=== PATIENT | female | born 1945 | race Caucasian/White ===

== ENCOUNTER 2020-03-14 13:13 | Inpatient (IN) | payer MEDICAID ==
[~2020-03-14] VITALS: Ht 152.4 cm; Wt 56.7 kg
[~2020-03-14 13:13] MED LIST: ASPI-1158 PO; BENA20TA10 PO; GABA-531 PO; SIMV-43 PO; [UNRECOGNIZED DRUG - CODE] SUBCUT
[2020-03-14] MEDS ORDERED: INSU100I32 SQ (13:34)
[2020-03-14] MEDS ORDERED: AMLO10TA80 PO (13:34)
[2020-03-14] MEDS ORDERED: INSU100I24 SQ (13:34)
[2020-03-14] MEDS ORDERED: CLOP75TA33 PO (13:34)
[2020-03-14] MEDS ORDERED: SODIUM CHLORIDE 0.9% 1,000 ML IV ONE (13:56)
[2020-03-14] MEDS ORDERED: LORAZEPAM 2MG/ML CPJ IV ONE (14:00)
[2020-03-14 14:21] LABS: BASOPHILS % 0.7 % (0.0-2.0); EOSINOPHILS % 3.9 % (0.0-5.0); HEMATOCRIT. 42.8 % (36.0-48.0); HEMOGLOBIN. 15.1 g/dL (12.0-16.0); LYMPHOCYTES % 25.6 % (20.0-50.0); MEAN CORPUSCULAR VOLUME 87.9 fL (81.0-99.0); MEAN PLATELET VOLUME 9.1 fl (7.4-10.4); MONOCYTES % 7.7 % (2.0-8.0); NEUTROPHILS % 62.1 % (40.0-76.0); PLATELET 258 x1000/uL (130-400); RED BLOOD CELL COUNT 4.86 mill/uL (4.2-5.4); RED CELL DISTRIBUTION WIDTH 13.3 % (11.6-14.6)
[2020-03-14 14:29] LABS: CHLORIDE 106 mEq/L (98-107)
[2020-03-14 14:31] LABS: PARTIAL THROMBOPLASTIN TIME 26.6 sec (23.4-31.0); PROTHROMBIN TIME 10.7 sec (9.6-11.0)
[2020-03-14 14:35] LABS: ETHANOL BLOOD < 10 mg/dL
[2020-03-14 15:29] LABS: CLARITY URINE CLEAR (CLEAR); COLOR URINE YELLOW (YELLOW); KETONES URINE NEGATIVE (NEGATIVE); LEUKOCYTE ESTERASE URINE NEGATIVE (NEGATIVE); NITRITE URINE NEGATIVE (NEGATIVE); OCCULT BLOOD URINE NEGATIVE (NEGATIVE); PH URINE 6.5 (4.5-8.0); PROTEIN URINE NEGATIVE (NEGATIVE); SPECIFIC GRAVITY URINE 1.013 (1.005-1.030); UROBILINOGEN URINE 0.2 E.U./dL (0.2-1.0)
[2020-03-14 15:47] LABS: *AMPHETAMINES SCREEN URINE NEGATIVE (NEGATIVE); *BARBITURATES SCREEN URINE NEGATIVE (NEGATIVE); *BENZODIAZEPINES SCREEN URINE NEGATIVE (NEGATIVE); *COCAINE SCREEN URINE NEGATIVE (NEGATIVE); METHADONE URINE SCREEN NEGATIVE (NEGATIVE); OPIATES URINE SCREEN NEGATIVE (NEGATIVE); PHENCYCLIDINE URINE SCREEN NEGATIVE (NEGATIVE)
[2020-03-14 15:48] LABS: CANNABINOID URINE SCREEN NEGATIVE (NEGATIVE)
[2020-03-14] MEDS ORDERED: ENOXAPARIN 40MG/0.4ML SYR SUBCUT SCH (18:00)
[2020-03-14] MEDS ORDERED: DEXTROSE 50% WATER 50ML SYRINGE IV PRN (18:00)
[2020-03-14] MEDS: LORAZEPAM 2MG/ML CPJ IV PRN (18:28)
[2020-03-14] MEDS: INSULIN LISPRO 100 UNITS/ML SUBCUT SCH ×2 (18:47→21:26)
[2020-03-14 20:02] LABS: T4 FREE 1.46 ng/dL (0.76-1.46)
[2020-03-14 21:00] VITALS: BP_SYST 150; BP_SYST 156; BP_DIAS 74; BP_DIAS 88
[2020-03-14] MEDS ORDERED: ATORVASTATIN CALCIUM 40MG TABLET PO SCH (21:00)
[2020-03-14] MEDS: BLOOD SUGAR DIAGNOSTIC STRIP TEST SCH (21:26)
[2020-03-14] MEDS: ATORVASTATIN CALCIUM 40MG TABLET PO SCH ×2 (22:30→23:22)
[2020-03-15] VITALS: BP 143/74
[2020-03-15] MEDS: LORAZEPAM 2MG/ML CPJ IV PRN (02:38)
[2020-03-15 04:00] VITALS: BP 154/77
[2020-03-15] MEDS: BLOOD SUGAR DIAGNOSTIC STRIP TEST SCH ×2 (06:02→12:20)
[2020-03-15] MEDS: INSULIN LISPRO 100 UNITS/ML SUBCUT SCH ×2 (07:50→13:27)
[2020-03-15 07:58] VITALS: BP 144/69
[2020-03-15] MEDS ORDERED: CLOPIDOGREL 75MG TABLET PO SCH (09:00)
[2020-03-15 11:27] VITALS: BP 153/66
[2020-03-15] MEDS ORDERED: RISPERIDONE 1MG TABLET PO SCH (13:30)
[2020-03-15 15:48] VITALS: BP 140/60
[2020-03-15 16:37] VITALS: BP 115/62
== END 2020-03-15 16:15 | disposition home or self-care (01) | DRG 52 ==
LOC: ER 13:47 → 6WST 16:20 → ENRESERV 19:29 → ER 20:18
PROVIDERS: ADMIT Internal Medicine; ATTEND Internal Medicine
DX: G93.41 Metabolic encephalopathy (principal); I69.351 Hemiplegia and hemiparesis following cerebral infarction affecting right dominant side; E11.9 Type 2 diabetes mellitus without complications; E03.9 Hypothyroidism, unspecified; F03.90 Unspecified dementia, unspecified severity, without behavioral disturbance, psychotic disturbance, mood disturbance, and anxiety; E78.5 Hyperlipidemia, unspecified; E78.00 Pure hypercholesterolemia, unspecified; I10 Essential (primary) hypertension; Z79.4 Long term (current) use of insulin; Z79.82 Long term (current) use of aspirin; Z79.899 Other long term (current) drug therapy; Z78.1 Physical restraint status
CPT/HCPCS: 36415; 71045; 80053; 80061; 80305; 80320; 81003; 82962; 83880; 84439; 84443; 84484; 85025; 92610; 93005; 96372; 97162; 99285; J1815; J2060; J7030; G0480